=== PATIENT | female | born 1960 | race Caucasian/White ===

== ENCOUNTER 2024-06-17 13:53 | Emergency (ER) | payer OTHER ==
[~2024-06-17] VITALS: Ht 162.6 cm; Wt 66.6 kg
[2024-06-17] MEDS ORDERED: TYLENOL325 M1 PO (14:11)
[2024-06-17] MEDS ORDERED: PLAVIX75 MG PO (14:11)
[2024-06-17] MEDS ORDERED: LIPITOR10 MG (14:11)
[2024-06-17] MEDS ORDERED: LISINOPRIL10 MG PO (14:11)
[2024-06-17] MEDS ORDERED: OXYCODONE/APAP 5/325 TAB PO ONE (14:15)
[2024-06-17] MEDS ORDERED: PERCOCET 5-3251 EACH PO (16:19)
[2024-06-17 16:38] VITALS: BP 105/74
== END 2024-06-17 16:39 | disposition home or self-care (01) ==
LOC: ED 13:53
DX: S92.512A Displaced fracture of proximal phalanx of left lesser toe(s), initial encounter for closed fracture (principal); X58.XXXA Exposure to other specified factors, initial encounter; Z88.0 Allergy status to penicillin; Z79.899 Other long term (current) drug therapy
CPT/HCPCS: 73630; 99283

== ENCOUNTER 2024-08-07 02:29 | Emergency (ER) | payer OTHER ==
[~2024-08-07] VITALS: Ht 162.6 cm; Wt 67.9 kg
[~2024-08-07 02:29] MED LIST: LIPITOR10 MG; LISINOPRIL10 MG PO; PERCOCET 5-3251 EACH PO; PLAVIX75 MG PO; TYLENOL325 M1 PO
[2024-08-07] MEDS ORDERED: ASPIRIN 81 MG CHEW PO ONE (02:45)
[2024-08-07] MEDS ORDERED: ALBUTEROL/IPRATROPIUM 3 ML NEB INH ONE (02:45)
[2024-08-07 02:50] LABS: HEMATOCRIT 41.3 % (35.0-50.0); MCHC 33.9 g/dl (30-36); MCV 91.7 fl (81-99); MONOCYTES 6.3 % (0-12); NEUTROPHILS 65.7 % (39-80); PLATELET COUNT 334 K/uL (140-440)
[2024-08-07 02:58] LABS: INR 0.92 (0.80-1.30)
[2024-08-07 03:10] LABS: ALBUMIN 3.4 g/dL (3.4-5.0); ALBUMIN/GLOBULIN RATIO 0.94 (1.1-2.4); ANION GAP 14.4 (7-21); BILIRUBIN, TOTAL 0.4 ng/dL (0.2-1.0); BUN/CREATININE RATIO 25.86 (6.0-28.6); CALCIUM 9.9 mg/dL (8.5-10.1); CREATININE, SERUM 1.16 mg/dL (0.55-1.02); POTASSIUM 4.4 mmol/L (3.5-5.1)
[2024-08-07 03:24] LABS: INFLUENZA B NAA NEGATIVE (NEGATIVE); RESPIRATORY SYNCYTIAL VIR NAA NEGATIVE (NEGATIVE)
[2024-08-07] MEDS ORDERED: VENTOLIN HFA18 GM INH (04:22)
[2024-08-07] MEDS ORDERED: AZITHROMYCIN 250 MG HOME.PACK PO ONE (04:30)
[2024-08-07] MEDS ORDERED: methylPREDNISolone 4 MG HOME.PACK PO ONE (04:30)
[2024-08-07 04:40] VITALS: BP 122/72
--- NOTE | 2024-08-08 15:27 | EKG ---
[facility] [address] [facility] [place] [address] Signed Normal sinus rhythm Septal infarct , age undetermined Abnormal ECG No previous ECGs available Confirmed by Tangela Reno MD ([id number]) on 08/08/2024 3:27:03 PM Electronically Signed By: TANGELA RENO MD 08/08/24 152 PATIENT NAME: NELLI NAYAK Electrocardiogram DATE OF : 64 PHYSICIAN: TANGELA RENO MD REPORT #: [id number] REPORT IS CONFIDENTIAL AND NOT TO BE RELEASED WITHOUT AUTHORIZATION
== END 2024-08-07 04:40 | disposition home or self-care (01) ==
LOC: ED 02:29
PROVIDERS: Family Medicine
DX: R07.89 Other chest pain (principal); J40 Bronchitis, not specified as acute or chronic; I10 Essential (primary) hypertension; E78.00 Pure hypercholesterolemia, unspecified; Z86.73 Personal history of transient ischemic attack (TIA), and cerebral infarction without residual deficits; Z87.891 Personal history of nicotine dependence; Z88.0 Allergy status to penicillin; Z79.01 Long term (current) use of anticoagulants; Z79.899 Other long term (current) drug therapy
CPT/HCPCS: 36415; 71045; 80053; 83735; 83880; 84484; 85025; 85610; 87502; 93005; 93010; 94640; 99285-25; A9270; U0002

== ENCOUNTER 2024-08-12 10:34 | Emergency (ER) | payer OTHER ==
[~2024-08-12] VITALS: Ht 162.6 cm; Wt 64.4 kg
[~2024-08-12 10:34] MED LIST changes: +VENTOLIN HFA18 GM INH
--- OUTSIDE RECORDS SUMMARY | 2024-08-12 10:43 | XMS ---
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 Diaz VISIT COUNT (12 MO.) 3 NASREEN Harper TOTAL 3 NOTE: Visits indicate total known visits. ED/UCC VISIT TRACKING (12 MO.) 08/12/2024 10:35 NASRE[facility] Fowler [place] TYPE: Emergency COMPLAINT: - SHORTNESS OF BREATH 08/07/2024 02:30 NASRE[facility] Fowler [place] TYPE: Emergency COMPLAINT: - CHEST PAIN DIAGNOSES: - Allergy status to penicillin - Bronchitis, not specified as acute or chronic - Essential (primary) hypertension - [facility] (current) use of anticoagulants - Other chest pain - Other correction (current) drug therapy - Personal history of nicotine dependence - Personal history of transient ischemic attack (TIA), and cerebral infarction without residual deficits - Pure hypercholesterolemia, unspecified 06/17/2024 13:53 NASREEN Fowler [place] TYPE: Emergency COMPLAINT: - LT FOOT PAIN DIAGNOSES: - Allergy status to penicillin - Displaced fracture of proximal phalanx of left lesser toe(s), initial encounter for closed fracture - Exposure to other specified factors, initial encounter - 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
[2024-08-12] MEDS ORDERED: ALBUTEROL/IPRATROPIUM 3 ML NEB INH PRN (10:45)
[2024-08-12] MEDS ORDERED: fentaNYL citrate 100 MCG/2 ML VIAL IV PRN (11:00)
[2024-08-12 11:05] LABS: BASOPHILS 0.9 % (0-2); EOSINOPHILS 0.7 % (0-6); HEMATOCRIT 41.8 % (35.0-50.0); HEMOGLOBIN 14.1 g/dL (12.0-18.0); LYMPHOCYTES 22.6 % (24-44); MCH 30.7 (27-36); MCHC 33.6 g/dl (30-36); MCV 91.4 fl (81-99); NEUTROPHILS 68.8 % (39-80); PLATELET COUNT 367 K/uL (140-440); RBC 4.57 M/ul (4.3-5.7); RDW 13.8 (10.5-15.0)
[2024-08-12 11:10] LABS: ALBUMIN 3.6 g/dL (3.4-5.0); ALBUMIN/GLOBULIN RATIO 1.03 (1.1-2.4); ANION GAP 14.5 (7-21); BILIRUBIN, TOTAL 0.6 ng/dL (0.2-1.0); BUN/CREATININE RATIO 25.68 (6.0-28.6); CALCIUM 10.6 mg/dL (8.5-10.1); CREATININE, SERUM 1.09 mg/dL (0.55-1.02); POTASSIUM 4.5 mmol/L (3.5-5.1); PROTEIN, TOTAL 7.1 g/dL (6.4-8.2)
[2024-08-12] MEDS ORDERED: HYDROmorphone HCL 1 MG/ML SYR IV PRN (14:15)
[2024-08-12] MEDS ORDERED: PERCOCET 5-3251 EACH PO (15:46)
[2024-08-12] MEDS ORDERED: ONDANSETRON ODT8 MG PO (15:46)
[2024-08-12 16:00] VITALS: BP 141/89
--- NOTE | 2024-08-15 14:37 | EKG ---
[facility] [address] [facility] [place] [address] Signed Normal sinus rhythm Possible Left atrial enlargement Borderline ECG When compared with ECG of 12-AUG-2024 11:19, (Unconfirmed) No significant change was found Confirmed by David Bernal MD ([id number]) on 08/15/2024 2:37:06 PM Electronically Signed By: DAVID BERNAL DO 08/15/24 1437 PATIENT NAME: NELLI NAYAK Electrocardiogram DATE OF : 64 PHYSICIAN: DAVID BERNAL DO REPORT #: [id number] REPORT IS CONFIDENTIAL AND NOT TO BE RELEASED WITHOUT AUTHORIZATION
--- NOTE | 2024-08-15 14:37 | EKG ---
[facility] [address] [facility] [place] [address] Signed Normal sinus rhythm Possible Left atrial enlargement Borderline ECG When compared with ECG of 07-AUG-2024 02:36, No significant change was found Confirmed by David Bernal MD ([id number]) on 08/15/2024 2:36:43 PM Electronically Signed By: DAVID BERNAL DO 08/15/24 1437 PATIENT NAME: NELLI NAYAK Electrocardiogram DATE OF : 64 PHYSICIAN: DAVID BERNAL DO REPORT #: [id number] REPORT IS CONFIDENTIAL AND NOT TO BE RELEASED WITHOUT AUTHORIZATION
--- NOTE | 2024-08-15 14:37 | EKG ---
[facility] [address] [facility] [place], [place] [address] Signed Normal sinus rhythm with sinus arrhythmia Possible Left atrial enlargement Septal infarct , age undetermined Abnormal ECG When compared with ECG of 12-AUG-2024 10:40, (Unconfirmed) No significant change was found Confirmed by David Bernal MD ([id number]) on 08/15/2024 2:36:51 PM Electronically Signed By: DAVID BERNAL DO 08/15/24 1437 PATIENT NAME: NELLI NAYAK Electrocardiogram DATE OF : 64 PHYSICIAN: DAVID BERNAL DO REPORT #: [id number] REPORT IS CONFIDENTIAL AND NOT TO BE RELEASED WITHOUT AUTHORIZATION
== END 2024-08-12 16:00 | disposition home or self-care (01) ==
LOC: ED 10:34
PROVIDERS: Emergency Medicine
DX: K85.90 Acute pancreatitis without necrosis or infection, unspecified (principal); I10 Essential (primary) hypertension; E78.5 Hyperlipidemia, unspecified; F17.200 Nicotine dependence, unspecified, uncomplicated; Z88.0 Allergy status to penicillin; Z79.899 Other long term (current) drug therapy
CPT/HCPCS: 36415; 71045; 76705; 80053; 83690; 83735; 83880; 84484; 85025; 93005; 93010; 94640; 96374; 96375; 96376; 99285-25; J1171; J3010

== ENCOUNTER 2024-08-14 14:33 | Emergency (ER) | payer OTHER ==
[~2024-08-14] VITALS: Ht 162.6 cm; Wt 62.5 kg
[~2024-08-14 14:33] MED LIST changes: +ONDANSETRON ODT8 MG PO
--- OUTSIDE RECORDS SUMMARY | 2024-08-14 14:48 | XMS ---
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 Diaz VISIT COUNT (12 MO.) 4 NASREEN Harper TOTAL 4 NOTE: Visits indicate total known visits. 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
[2024-08-14] MEDS ORDERED: ondansetron HCL 4 MG/2 ML VIAL IV ONE (16:30)
[2024-08-14 16:36] LABS: BILIRUBIN, URINE NEGATIVE (negative); BLOOD/HGB, URINE NEGATIVE (Negative); KETONE, URINE NEGATIVE (Negative); LEUK ESTERASE, URINE SMALL (negative); NITRITE, URINE NEGATIVE (negative); PH, URINE 5.5 (5-7)
[2024-08-14] MEDS ORDERED: SODIUM CHLORIDE 0.9% 1,000 ML IV PRN ×2 (16:40→18:30)
[2024-08-14 16:44] LABS: BACTERIA, URINE 1+ /hpf (negative)
[2024-08-14 16:45] LABS: CASTS, URINE HYALINE 1+ \\lpf; COLLECTION TYPE, URINE CLEAN CATCH; EPITHELIAL CELLS, URINE SQUAMOUS 2+ /lpf (0-1+); REFLEX CULTURE, URINE No (No)
[2024-08-14 17:08] LABS: BASOPHILS 0.8 % (0-2); EOSINOPHILS 0.4 % (0-6); HEMOGLOBIN 14.1 g/dL (12.0-18.0); LYMPHOCYTES 30.3 % (24-44); MCHC 33.6 g/dl (30-36); MCV 92.3 fl (81-99); NEUTROPHILS 61.5 % (39-80); PLATELET COUNT 366 K/uL (140-440); RBC 4.55 M/ul (4.3-5.7); RDW 13.7 (10.5-15.0)
[2024-08-14 17:24] LABS: ALBUMIN 3.5 g/dL (3.4-5.0); ALBUMIN/GLOBULIN RATIO 1.09 (1.1-2.4); BILIRUBIN, TOTAL 0.7 ng/dL (0.2-1.0); BUN/CREATININE RATIO 20.13 (6.0-28.6); CALCIUM 9.8 mg/dL (8.5-10.1); CREATININE, SERUM 1.44 mg/dL (0.55-1.02); PROTEIN, TOTAL 6.7 g/dL (6.4-8.2)
[2024-08-14] MEDS ORDERED: HYDROmorphone HCL 1 MG/ML SYR IV PRN (17:30)
[2024-08-14] MEDS ORDERED: LIDOCAINE & ANTACID 35 ML BTL PO ONE (19:30)
[2024-08-14] MEDS ORDERED: PROTONIX20 MG PO (19:45)
[2024-08-14] MEDS ORDERED: PANTOPRAZOLE SODIUM 40 MG/10 ML VIAL IV ONE (19:45)
[2024-08-14 20:05] VITALS: BP 115/70
--- NOTE | 2024-08-15 14:41 | EKG ---
[facility] [address] [facility] [place] [address] Signed Sinus tachycardia with fusion complexes Right atrial enlargement Incomplete right bundle branch block Borderline ECG When compared with ECG of 12-AUG-2024 14:04, (Unconfirmed) fusion complexes are now present Nonspecific T wave abnormality has replaced inverted T waves in Anterior leads Confirmed by David Bernal MD ([id number]) on 08/15/2024 2:40:44 PM Electronically Signed By: DAVID BERNAL DO 08/15/24 1441 PATIENT NAME: NELLI NAYAK Electrocardiogram DATE OF : 64 PHYSICIAN: DAVID BERNAL DO REPORT #: [id number] REPORT IS CONFIDENTIAL AND NOT TO BE RELEASED WITHOUT AUTHORIZATION
== END 2024-08-14 20:06 | disposition home or self-care (01) ==
LOC: ED 14:33
PROVIDERS: Emergency Medicine
DX: K21.9 Gastro-esophageal reflux disease without esophagitis (principal); R07.9 Chest pain, unspecified; N20.0 Calculus of kidney; I10 Essential (primary) hypertension; E78.00 Pure hypercholesterolemia, unspecified; Z86.73 Personal history of transient ischemic attack (TIA), and cerebral infarction without residual deficits; Z88.0 Allergy status to penicillin; Z79.01 Long term (current) use of anticoagulants; Z79.899 Other long term (current) drug therapy
CPT/HCPCS: 36415; 71275; 74175; 80053; 81001; 83690; 84484; 85025; 87077; 87088; 87186; 93005; 93010; 96361; 99284-25; J1171; J2405; J2470; J7030